=== PATIENT | male | born 2000 | race Caucasian/White ===

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

== ENCOUNTER → 2022-03-25 | Outpatient (CLI) | payer OTHER ==
[2022-03-25 12:29] LABS: HEMOGLOBIN 15.7 gm/dl (14.0-17.5); RED BLOOD COUNT 5.07 M/UL (4.20-5.50); WHITE BLOOD COUNT 9.1 K/UL (4.5-11.0)
[2022-03-25 13:00] LABS: BUN/CREATININE RATIO 11 (0-10)
[2022-03-26 08:15] LABS: VITAMIN D, 25-HYDROXY 8.8 ng/mL (30.0-100.0)
== END ==
LOC: LAB 11:45
PROVIDERS: Pediatrics
DX: R19.7 Diarrhea, unspecified (principal)
CPT/HCPCS: 36415; 80053; 80061; 82784; 84443; 85025